=== PATIENT | female | born 1955 | race Caucasian/White ===

== ENCOUNTER 2017-09-13 11:44 | Emergency (ER) | payer SELFPAY ==
[2017-09-13 11:55] VITALS: BMI 22.3
[2017-09-13] MEDS ORDERED: Enalaprilat 2.5 MG/2 ML IV STA (12:58)
[2017-09-13] MEDS ORDERED: NIFEdipine 30 mg ER Tab PO STA (12:59)
[2017-09-13] MEDS ORDERED: Enalaprilat 2.5 MG/2 ML ONE (13:07)
--- NOTE | 2017-09-13 13:36 | C.PDOC ---
History Of Present Illness 62 year old female with PMHx of HTN is sent to the ED from [facility] for evaluation of her high blood pressure. Patient reports taking Losartan 100 mg and Nifedical 30 mg but she has not taken them for a week because she ran out of the medications. Patient denies any headache, CP, SOB, blurry vision, dizziness, weakness, numbness. Time Seen by Provider: 09/13/17 12:17 Chief Complaint (Nursing): High Blood Pressure History Per: Patient History/Exam Limitations: no limitations Onset/Duration Of Symptoms: Hrs Current Symptoms Are (Timing): Still Present Associated Symptoms: denies: Chest Pain, Blurred Vision, Headache Quality Of Symptoms: Asymptomatic Severity: None Exacerbating Factor(s): Pos: Recently Missed Doses Of Medication Recent travel outside of the [place]: No Additional History Per: Patient Past Medical History Reviewed: Historical Data, Nursing Documentation, Vital Signs Vital Signs: Last Vital Signs Temp 97.8 F 09/13/17 13:42 Pulse 56 L 09/13/17 14:56 Resp 18 09/13/17 14:56 BP 174/62 H 09/13/17 14:56 Pulse Ox 99 09/13/17 14:56 - Medical History PMH: HTN Surgical History: No Surg Hx Family History: States: Unknown Family Hx - Social History Hx Alcohol Use: No Hx Substance Use: No - Immunization History Hx Tetanus Toxoid Vaccination: No Hx Influenza Vaccination: No Hx Pneumococcal Vaccination: No Review Of Systems Constitutional: Negative for: Fever, Chills Eyes: Negative for: Vision Change Cardiovascular: Negative for: Chest Pain, Palpitations Respiratory: Negative for: Cough, Shortness of Breath Gastrointestinal: Negative for: Nausea, Vomiting, Abdominal Pain Genitourinary: Negative for: Dysuria, Hematuria Skin: Negative for: Rash Neurological: Negative for: Weakness, Numbness, Headache, Dizziness Physical Exam - Physical Exam Appears: Non-toxic, No Acute Distress Skin: Normal Color, Warm, Dry Head: Atraumatic, Normacephalic Eye(s): bilateral: Normal Inspection Nose: No Discharge, No Deformity Oral Mucosa: Moist Neck: Normal ROM, Supple Chest: Symmetrical Cardiovascular: Rhythm Regular, No Murmur Respiratory: Normal Breath Sounds, No Rales, No Rhonchi, No Wheezing Gastrointestinal/Abdominal: Soft, No Tenderness, No Guarding, No Rebound Extremity: Normal ROM, No Pedal Edema, No Calf Tenderness, No Deformity, No Swelling Neurological/Psych: Oriented x3, Normal Speech, Normal Cognition Gait: Steady ED Course And Treatment O2 Sat by Pulse Oximetry: 99 (On RA) Pulse Ox Interpretation: Normal Progress Note: Plan: -Vasotec 2.5 mg IVP. -Procardia XL 30 mg PO. On re- evaluation patient still asymptomatic, BP is down and she is stable to be d/c home with PMD follow up. Disposition - Disposition Referrals: [facility] [Outside] Disposition: HOME/ ROUTINE Disposition Time: 14:13 Condition: IMPROVED Additional Instructions: Follow up in Clinic within 1-2 days. return to Ed if feel worse. 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 - Scribe Statement The provider has reviewed the documentation as recorded by the Scribe Brown Nunez All medical record entries made by the Scribe were at my direction and personally dictated by me. I have reviewed the chart and agree that the record accurately reflects my personal performance of the history, physical exam, medical decision making, and the department course for this patient. I have also personally directed, reviewed, and agree with the discharge instructions and disposition.
[2017-09-13 13:42] VITALS: RESP 18; TEMP 97.8
[2017-09-13 14:30] VITALS: O2SAT 99
[2017-09-13 14:58] VITALS: BP 174/62; PULSE 56
== END 2017-09-13 15:09 | disposition home or self-care (01) ==
LOC: C.ER 11:44
DX: I10 Essential (primary) hypertension (principal)